=== PATIENT | female | born 1960 | race African-American/Black ===

== ENCOUNTER 2017-03-23 06:43 | Day surgery (SDC) | payer OTHER ==
[2017-03-21 15:08] LABS: HEMOGLOBIN 11.5 g/dL (12.0-16.0)
[2017-03-21 15:24] LABS: BUN (BLOOD UREA NITROGEN) 7 MG/DL (6-23); CALCIUM, SERUM 8.8 MG/DL (8.5-10.4); CHLORIDE, SERUM 110 MMOL/L (96-112); CO2 (CARBON DIOXIDE) 32 MMOL/L (24-34); CREATININE 0.58 MG/DL (0.55-1.02); GFR AFRICAN AMERICAN 119 ML/MIN (>=60); GFR NON AFRICAN AMERICAN 103 ML/MIN (>=60); GLUCOSE, SERUM 94 MG/DL (60-99); POTASSIUM, SERUM 3.9 MMOL/L (3.5-5.3); SODIUM, SERUM 144 MMOL/L (135-148)
[~2017-03-23 06:43] MED LIST: ALEVE220 MG PO; ANADS PO; BESIVANCE 0.6% OPH; BRIMONIDINE0.2 % OPH; IBU-200200 MG PO; ILEVRO1.7 ML OPH; PROTONIX PO; TIMOLOL MAL0.5 % OPH
[2017-06-26] MEDS ORDERED: NAP500 PO (15:26)
== END 2017-03-23 11:03 | disposition home or self-care (01) ==
LOC: SDC 06:43
PROVIDERS: Ophthalmology
PROC: 08RK3JZ Replacement of Left Lens with Synthetic Substitute, Percutaneous Approach (ICD-10-PCS; principal; 2017-03-23 08:30)
DX: H25.12 Age-related nuclear cataract, left eye (principal); G47.33 Obstructive sleep apnea (adult) (pediatric); E66.01 Morbid (severe) obesity due to excess calories; E11.9 Type 2 diabetes mellitus without complications; M19.90 Unspecified osteoarthritis, unspecified site; K21.9 Gastro-esophageal reflux disease without esophagitis; Z99.81 Dependence on supplemental oxygen; Z87.891 Personal history of nicotine dependence; Z79.899 Other long term (current) drug therapy; Z98.890 Other specified postprocedural states
CPT/HCPCS: 80048; 82962; 85014; 85018; 93005; J2150; J2405; V2787